=== PATIENT | female | born 1955 | race Caucasian/White ===

== ENCOUNTER → 2023-12-05 07:48 | Outpatient (REF) | payer OTHER, SELFPAY | LOC: RAD 07:48 | PROVIDERS: ATTENDING PHYSICIAN Internal Medicine Gastroenterology; FAMILY PHYSICIAN Family Medicine | DX: R11.0 Nausea (principal) | CPT/HCPCS: 78264; A9541 ==

== ENCOUNTER → 2024-09-22 14:10 | Outpatient (REF) | payer OTHER, SELFPAY | LOC: HWRAD 14:10 | PROVIDERS: ATTENDING PHYSICIAN Nurse Practitioner Family | DX: N30.01 Acute cystitis with hematuria (principal); N39.0 Urinary tract infection, site not specified | CPT/HCPCS: 76770 ==

== ENCOUNTER → 2024-10-10 13:57 | Outpatient (REF) | payer OTHER, SELFPAY | LOC: RAD 13:57 | PROVIDERS: ATTENDING PHYSICIAN Nurse Practitioner; FAMILY PHYSICIAN Family Medicine | DX: N20.0 Calculus of kidney (principal) | CPT/HCPCS: 74018 ==

== ENCOUNTER → 2025-01-08 11:56 | Outpatient (REF) | payer OTHER, SELFPAY | LOC: RAD 11:56 | PROVIDERS: ATTENDING PHYSICIAN Surgery; FAMILY PHYSICIAN Family Medicine | DX: Q27.1 Congenital renal artery stenosis (principal); N20.9 Urinary calculus, unspecified | CPT/HCPCS: 74177; Q9967 ==

== ENCOUNTER 2025-02-02 06:24 | Day surgery (SDC) | payer OTHER, SELFPAY ==
[2025-01-27 10:47] LABS: Hematocrit 39.8 % (37.0-47.0); Hemoglobin 13.6 g/dL (12.0-16.0); Mean Corp Hgb Conc. 34.2 g/dL (33.0-37.0); Mean Corpuscular Volume 87.1 fL (81.0-99.0); Platelet Count 244 10^3/uL (130-400); Red Cell Dist. Width 13.7 % (11.5-14.5)
[2025-01-27 14:15] VITALS: BMI 32.1
[2025-02-02] VITALS (7 sets, daily range): BP systolic 132–170; BP diastolic 63–88; BMI 32.1
[2025-02-02] MEDS: NORMOSOL-R/PLASMALYTE-A 1000 IV (09:06)
[2025-02-02] MEDS: DETROL LA 4 MG PO (11:21)
== END 2025-02-02 12:35 | disposition home or self-care (01) ==
LOC: SDS 06:24
PROVIDERS: ATTENDING PHYSICIAN Surgery; FAMILY PHYSICIAN Family Medicine
DX: N20.0 Calculus of kidney (principal); Z87.440 Personal history of urinary (tract) infections
CPT/HCPCS: 52356; 36415; 74018; 76000; 85027; 93005; C1769; C1894; C2617

== ENCOUNTER 2025-02-13 06:29 | Day surgery (SDC) | payer OTHER, SELFPAY ==
--- NOTE | 2025-02-13 12:00 | HP.FOC2 ---
Focused History & Physical
Chief Complaint
HPI:
Chief Complaint: Large right renal stone, recurrent UTIs
HPI / Indication for Planned Procedure:
2.4 cm rlp stone recurrent same� bacteria c[since� may same organism does not clear� now on aristides and asx� � but stone is present and was 1.8 cm 2022� h/o hyperparathyroidism� 2010
====
CTAP w/ IV contrast => stable 1.7 cm stone in right extrarenal pelvis w/o obstructive uropathy, bilateral renal cysts w/o significant change.�
Noted to have recurrent E. faecalis UTIs - seen by Kiki Hoyos NP from [facility] - topical estrogen cream and GennaMD were advised - patient has not yet used estradiol cream as recommended.
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
Relevant Social History: Negative
Relevant Family History: Negative
Relevant Past Surgical History: Negative
Review of Systems
Review of Pertinent Systems: All Systems Negative
Medication
See Medication form for detailed medications: Yes
Medication List (including Herbals & OTC):
losartan 100 mg tablet 100 mg PO QPM 09/15/22
metoprolol succinate 50 mg tablet,extended release 24 hr 50 mg PO BID 09/15/22
ascorbic acid (vitamin C) 500 mg chewable tablet (Vitamin C) 500 mg PO DAILY 01/26/25
biotin 2,500 mcg capsule 2,500 mcg PO DAILY 01/26/25
cranberry fruit concentrate 130 mg capsule (GennaMD) 260 mg PO BID 01/26/25
esomeprazole magnesium 40 mg capsule,delayed release 40 mg PO QPM 01/26/25
estradiol 0.01% (0.1 mg/gram) vaginal cream 1 appful vaginal DAILY 01/26/25
famotidine 40 mg tablet 40 mg PO HS 01/26/25
ginkgo biloba 40 mg tablet 120 mg PO DAILY 01/26/25
nortriptyline 75 mg capsule 75 mg PO HS 01/26/25
psyllium husk 3.4 gram/5.4 gram oral powder (Metamucil) 1 tsp PO DAILY 01/26/25
ubrogepant 100 mg tablet (Ubrelvy) 100 mg PO PRN PRN migraines 01/26/25
vit C 250 mg-vit E 90 mg-zinc 40 mg-copper 1 [id number] capsule (PreserVision AREDS-2) 1 tab PO BID 01/26/25
calcium carbonate ([place] Heartburn Chew) 300 mg PO PRN PRN Heartburn 02/10/25
Medications Reviewed: Yes
Allergies and Reactions
Patient has Allergies: Yes
Noted Allergies and Reactions:
Allergy/AdvReac Type Severity Reaction Status Date / Time
cephalexin (From Keflex) Allergy Rash, hives Verified 02/13/25 13:35
morphine Allergy Rash, Hives Verified 02/13/25 13:35
Pertinent Physical Exam
All Other Systems: Negative
Head/Neck: Normal
Lungs: Normal
Heart: Normal
Abdomen: Normal
Extremities: Normal
Neurological: Normal
Diagnosis / Assessment
Large right renal stone
Recurrent UTIs
Plan / Procedure
To OR 02/13 for staged right ULS
Preop PO antibiotic course completed prior to surgery
Anesthesia/Sedation to be done by Anesthesia Provider: Yes
[2025-02-13 13:30] VITALS: BMI 30.2
[2025-02-13] MEDS: NORMOSOL-R/PLASMALYTE-A 1000 IV (13:30)
[2025-02-13 13:40] VITALS: BP 158/81
[2025-02-13 13:42] VITALS: BMI 30.2
[2025-02-13 13:58] LABS: Urine Character Cloudy (Clear)
[2025-02-13 14:46] LABS: Urine White Cell >100 /HPF (0-5)
--- NOTE | 2025-02-13 15:51 | W.IMMPOSTOP ---
Surgical Immed Post Op Note
-
Primary Surgeon: Axel
Pre-op Diagnosis: Large right renal stone
Post-op Diagnosis: Same
Procedure Performed: cysto, right URS/laser lithotripsy/stone extraction/stent exchange
Anesthesia Type: LMA
Specimen / Cultures: Stones for analysis/None
Estimated Blood Loss: Negligible
Drains: 6Fr x 22 cm JJ Percuflex soft right ureteral stent
Complications: None
Operative Findings: Large volume dense stone burden remaining (1.5 cm) - fragmented to 2-3 mm fragments and stone dust until visualization obscured.
Final KUB showing no large stone density remaining in right kidney.
Final KUB and cysto confirming appropriate right JJ stent position.
[2025-02-13 16:00] VITALS: BP 157/77; BP 158/81
[2025-02-13 16:15] VITALS: BP 168/87
[2025-02-13] MEDS: DETROL LA 4 MG PO (16:21)
[2025-02-13 16:25] VITALS: BP 179/88
[2025-02-13 16:40] VITALS: BP 187/97
[2025-02-13 16:55] VITALS: BP 170/76
[2025-02-18 16:51] LABS: Stone Analysis Mass 16 mg
== END 2025-02-13 17:16 | disposition home or self-care (01) ==
LOC: SDS 06:29
PROVIDERS: ATTENDING PHYSICIAN Surgery
DX: N20.0 Calculus of kidney (principal); Z87.440 Personal history of urinary (tract) infections
CPT/HCPCS: 52356; 74018; 76000; 81003; 81015; 82365; 87077; 87086; 87186; C1894